=== PATIENT | female | born 1965 | race Hispanic/Latino ===

== ENCOUNTER 2017-06-05 14:18 | Emergency (ER) | payer OTHER ==
[2017-06-05 14:57] VITALS: RESP 16; TEMP 99.3; O2SAT 100
[2017-06-05] MEDS ORDERED: TDAP Vaccine 0.5 mL Syr IM ONE (16:01)
[2017-06-05] MEDS ORDERED: Silver Sulfadiazine 1% Cream (25 gm) TP STA (16:01)
--- NOTE | 2017-06-05 16:29 | ED PDOC ---
Arrival/HPI - General Chief Complaint: Burn Time Seen by Provider: 06/05/17 15:57 Historian: Patient - History of Present Illness Narrative History of Present Illness (Text): 06/05/17 16:23 52 year old female, who denies any past medical history, presents to the emergency department complaining of right foot burn on the skin. Patient states she was at work when an employee misplaced the coffee pot. When she was walking past it, the coffee pot fell on her, spilling hot coffee all over her right foot. She states she applied OTC lotion and came here for evaluation. Denies any somatic complaints. Did not have an update on Tetanus shot yet and no known allergies. Patient denies any fever, chills, chest pain, shortness of breath, nausea, vomiting, diarrhea, urinary symptoms, back pain, neck pain, headache, dizziness, or any other complaints. PMD: Dr. Lopez Symptom Onset: Sudden Symptom Course: Unchanged Activities at Onset: Light Context: Work Past Medical History - Provider Review Nursing Documentation Reviewed: Yes - Cardiac Hx Cardiac Disorders: No - Pulmonary Hx Respiratory Disorders: Yes Hx Asthma: Yes - Neurological Hx Neurological Disorder: No - HEENT Hx HEENT Disorder: No - Renal Hx Renal Disorder: No - Endocrine/Metabolic Hx Endocrine Disorders: Yes Hx Hyperthyroidism: Yes - Hematological/Oncological Hx Blood Disorders: Yes Hx Hepatitis C: Yes - Integumentary Hx Dermatological Disorder: No - Musculoskeletal/Rheumatological Hx Musculoskeletal Disorders: No - Gastrointestinal Hx Gastrointestinal Disorders: No - Genitourinary/Gynecological Hx Genitourinary Disorders: No - Psychiatric Hx Psychophysiologic Disorder: Yes Hx Anxiety: Yes 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) - Surgical History Hx Section: Yes Hx Orthopedic Surgery: Yes (L WRIST) Family/Social History - Physician Review Nursing Documentation Reviewed: Yes Family/Social History: No Known Family HX Smoking Status: Light Smoker < 10 Cigarettes Daily Hx Alcohol Use: No 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) Allergies/Home Meds Allergies/Adverse Reactions: Allergies No Known Allergies Allergy (Verified 06/05/17 14:42) Home Medications: Home Meds Medication Instructions Recorded Confirmed Albuterol HFA [Ventolin HFA 90 2 puff NEB Q6 PRN 06/05/17 06/05/17 mcg/actuation (8 g)] Atazanavir [Reyataz] 100 mg PO DAILY 06/05/17 06/05/17 methIMAzole [Tapazole] 5 mg PO DAILY 06/05/17 06/05/17 traZODone [Desyrel] 50 mg PO DAILY 06/05/17 06/05/17 Review of Systems - Review of Systems Constitutional: absent: Fevers, Other (Chills) Respiratory: absent: SOB Cardiovascular: absent: Chest Pain Gastrointestinal: absent: Diarrhea, Nausea, Vomiting Genitourinary Female: absent: Dysuria, Frequency, Hematuria Musculoskeletal: absent: Back Pain, Neck Pain Skin: Other (Right foot burn) Neurological: absent: Headache, Dizziness Physical Exam Vital Signs Reviewed: Yes Vital Signs Temp Pulse Resp BP Pulse Ox 06/05/17 14:55 99.3 F 93 H 16 107/68 100 Temperature: Afebrile Blood Pressure: Normal Pulse: Regular Respiratory Rate: Normal Appearance: Positive for: Well-Appearing, Non-Toxic, Comfortable Pain Distress: None Mental Status: Positive for: Alert and Oriented X 3 - Systems Exam Head: Present: Atraumatic, Normocephalic Pupils: Present: PERRL Extroacular Muscles: Present: EOMI Conjunctiva: Present: Normal Mouth: Present: Moist Mucous Membranes Neck: Present: Normal Range of Motion Respiratory/Chest: Present: Clear to Auscultation, Good Air Exchange. No: Respiratory Distress, Accessory Muscle Use Cardiovascular: Present: Regular Rate and Rhythm, Normal S1, S2. No: Murmurs Abdomen: Present: Normal Bowel Sounds. No: Tenderness, Distention, Peritoneal Signs Back: Present: Normal Inspection Upper Extremity: Present: Normal Inspection. No: Cyanosis, Edema Lower Extremity: Present: Normal Inspection. No: Edema Neurological: Present: GCS=15, CN II-XII Intact, Speech Normal Skin: Present: Warm, Dry, Other (3 localized 2nd degree burn areas on right foot. First one Dorsal MPJ, Second MPJ and distal second toe. Largest blister 2cm). No: Rashes Psychiatric: Present: Alert, Oriented x 3, Normal Insight, Normal Concentration Medical Decision Making ED Course and Treatment: 06/05/17 16:34 Impression: 52 year old female presents complaining of burn on right foot s/p hot coffee spilled. PE shows 3 localized 2nd degree luther. Plan: -- Wound care Nurse -- Boostriz Vaccine Inj -- Motrin Tab -- Silvadene -- Reassess and disposition Progress Notes: - Medication Orders Current Medication Orders: Discontinued Medications Ibuprofen (Motrin Tab) 600 mg PO STAT STA Stop: 06/05/17 16:03 Last Admin: 06/05/17 16:14 Dose: 600 mg MAR Pain/Vitals Document 06/05/17 16:14 HI (Rec: 06/05/17 16:14 [facility]-[id number]) Pain Reassessment Is This A Pain ReAssessment? No Sleep Is patient sleeping during reassessment? No Presence of Pain Presence of Pain Yes Location Left, Right or Bilateral Right Pain Location Body Site Foot Silver Sulfadiazine (Silvadene 1% 25 Gm) 1 gm TP STAT STA Stop: 06/05/17 16:02 Tetanus/Reduced Diphtheria/Acell Pertussis (Boostrix Vaccine Inj) 0.5 ml IM .ONCE ONE Stop: 06/05/17 16:02 Last Admin: 06/05/17 16:13 Dose: 0.5 ml Immunization Registry Document 06/05/17 16:13 HI (Rec: 06/05/17 16:13 [id number]) Immunization Registry Consent Date 06/05/17 - Scribe Statement The provider has reviewed the documentation as recorded by the Jorge A Jaimes Provider Scribe Attestation: All medical record entries made by the Scribe were at my direction and personally dictated by me. I have reviewed the chart and agree that the record accurately reflects my personal performance of the history, physical exam, medical decision making, and the department course for this patient. I have also personally directed, reviewed, and agree with the discharge instructions and disposition. Disposition/Present on Arrival - Present on Arrival Any Indicators Present on Arrival: No History of DVT/PE: No History of Uncontrolled Diabetes: No Urinary Catheter: No History of Decub. Ulcer: No History Surgical Site Infection Following: None - Disposition Have Diagnosis and Disposition been Completed?: Yes Diagnosis: 2nd degree burn Disposition: HOME/ ROUTINE Disposition Time: 16:44 Patient Plan: Discharge Condition: GOOD Discharge Instructions (ExitCare): Second Degree Burn (ED) Additional Instructions: Call private doctor for follow up visit in 2-3 days. Take medication as instructed with food. Clean wound daily with soap and water and apply cream. Return to emergency if wound becomes infected. Prescriptions: Cephalexin [cephalexin] 500 mg PO QID #20 cap Ibuprofen [Motrin] 600 mg PO Q8 PRN #20 tab PRN Reason: Pain, Severe (8-10) Silver Sulfadiazine [Silvadene] 1 applic TP BID #30 cream..g. Referrals: Cristobal Lopez MD [Primary Care Provider] - Follow up with primary Forms: [facility] ([place]), WORK NOTE
[2017-06-05 17:07] VITALS: BP 112/87; PULSE 85
== END 2017-06-05 17:05 | disposition home or self-care (01) ==
LOC: ED 14:18 → MERGE 14:18 → ED 17:05
DX: T25.221A Burn of second degree of right foot, initial encounter (principal); X10.0XXA Contact with hot drinks, initial encounter; Y92.89 Other specified places as the place of occurrence of the external cause; Y99.0 Civilian activity done for income or pay; Z23 Encounter for immunization